=== PATIENT | female | born 1950 | race Caucasian/White ===

== ENCOUNTER 2017-11-20 12:25 | Emergency (ER) | payer MEDICARE, BC ==
[2017-11-20] MEDS ORDERED: LORazepam 0.5 MG Tab PO ONE (14:01)
[2017-11-20] MEDS ORDERED: HYDROmorphone 0.5 MG/0.5 ML Syringe IM ONE (14:02)
--- NOTE | 2017-11-20 14:03 | EDM.PDOC ---
ED HPI GENERAL MEDICAL PROBLEM - General Chief Complaint: Back Pain or Injury Stated Complaint: BACK MUSCLE SPASMS Time Seen by Provider: 11/20/17 14:03 Source of Information: Reports: Patient History Limitations: Reports: No Limitations - History of Present Illness INITIAL COMMENTS - FREE TEXT/NARRATIVE: pt arrived with acute pain in the lumbar area. She did seem quite agitated. Onset: Other (started Thursday) Duration: Day(s): Location: Reports: Back Quality: Reports: Ache, Sharp Associated Symptoms: Reports: No Other Symptoms Lower Back Pain Score (Numeric/FACES): 10 - Related Data Allergies Allergy/AdvReac Type Severity Reaction Status Date / Time cyclobenzaprine Allergy Confusion Verified 11/20/17 13:05 [From Flexeril] Home Meds: Home Meds Calcium Carbonate/Vitamin D3 [Calcium 600 + Vit D 200] 1 each PO BID 11/20/17 [ History] Celecoxib [Celecoxib] 1 tab PO BID 11/20/17 [History] Cholecalciferol (Vitamin D3) [Vitamin D] 1,000 unit PO DAILY 11/20/17 [History] Citalopram Hydrobromide [Celexa] 20 mg PO DAILY 11/20/17 [History] Gabapentin [Neurontin] 600 mg PO BID 11/20/17 [History] Glucosam/Msm/Vit C/Javier/Hrb#21 [Glucosamine-MSM Complex] 1 tab PO BID 11/20/17 [ History] Hydrocodone/Acetaminophen [[place] 10-325 Tablet] 1 tab PO Q6H PRN 11/20/17 [ History] Lisinopril/Hydrochlorothiazide [Zestoretic 10-12.5 mg Tablet] 1 tab PO DAILY [History] Morphine Sulfate [Morphine Sulfate ER] 30 mg PO Q12H 11/20/17 [History] [place]-3 Fatty Acids [Maxepa] 1,000 mg PO DAILY 11/20/17 [History] Omeprazole 20 mg PO DAILY 11/20/17 [History] Raloxifene [Evista] 60 mg PO DAILY 11/20/17 [History] buPROPion [Wellbutrin SR] 150 mg PO BID 11/20/17 [History] tiZANidine [Zanaflex] 4 mg PO TID 11/20/17 [History] Past Medical History HEENT History: Reports: Impaired Vision Cardiovascular History: Reports: Hypertension 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: Musculoskeletal History: Reports: Arthritis, Back Pain, Chronic, Osteoarthritis , Osteoporosis Psychiatric History: Reports: Depression - Infectious Disease History Infectious Disease History: Reports: Measles - Past Surgical History GI Surgical History: Reports: Colonoscopy Social & Family History - Tobacco Use Smoking Status *Q: Never Smoker Second Hand Smoke Exposure: No - Caffeine Use Caffeine Use: Reports: Coffee - Recreational Drug Use Recreational Drug Use: No ED ROS GENERAL - Review of Systems Review Of Systems: See Below Constitutional: Reports: No Symptoms HEENT: Reports: No Symptoms Respiratory: Reports: No Symptoms Cardiovascular: Reports: No Symptoms Endocrine: Reports: No Symptoms GI/Abdominal: Reports: No Symptoms : Reports: No Symptoms Musculoskeletal: Reports: Other ( Pain in lower back. ) Skin: Reports: No Symptoms ED EXAM,LOWER BACK PAIN/INJURY - Physical Exam Exam: See Below Text/Narrative:: pt arrived complaining of pain in the lower back. She did seem very tense. She evidently became confused with the use of the flexerilc Exam Limited By: No Limitations General Appearance: Alert, Anxious, Moderate Distress Ears: Normal TMs Nose: Normal Inspection Throat/Mouth: Normal Inspection Head: Atraumatic Neck: Normal Inspection Respiratory/Chest: No Respiratory Distress Cardiovascular: Regular Rate, Rhythm GI/Abdominal: Soft, Non-Tender, Other ( she does have pain coming around from the back to the abdoman. ) (Female) Exam: Deferred Rectal (Female) Exam: Deferred Back Exam: Normal Inspection Extremities: Normal Inspection Neurological: Alert Psychiatric: Anxious, Other (pt was on the agitated side. ) Course - Vital Signs Last Recorded V/S: Last Vital Signs Temp 36.4 C 11/20/17 13:03 Pulse 94 11/20/17 13:03 Resp 14 11/20/17 13:03 BP 178/97 H 11/20/17 13:03 Pulse Ox 97 11/20/17 13:03 - Orders/Labs/Meds Orders: Active Orders 24 hr Category Date Time Status Lumbar Spine Min 4V [CR] Stat Exams 11/20/17 14:00 Taken Labs: Laboratory Tests 11/20/17 11/20/17 11/20/17 Range/Units 14:00 14:00 15:10 WBC 10.5 (4.5-11.0) K/uL RBC 4.32 (3.30-5.50) M/uL Hgb 12.8 (12.0-15.0) g/dL Hct 36.7 (36.0-48.0) % MCV 85 (80-98) fL MCH 30 (27-31) pg MCHC 35 (32-36) % Plt Count 311 (150-400) K/uL Neut % (Auto) 85 H (36-66) % Lymph % (Auto) 9 L (24-44) % [place] % (Auto) 5 (2-6) % Eos % (Auto) 0 L (2-4) % Baso % (Auto) 0 (0-1) % Sodium 128 L (140-148) mmol/L Potassium 3.3 L (3.6-5.2) mmol/L Chloride 91 L (100-108) mmol/L Carbon Dioxide 28 (21-32) mmol/L Anion Gap 12.3 (5.0-14.0) mmol/L BUN 7 (7-18) mg/dL Creatinine 0.8 (0.6-1.0) mg/dL Est Cr Clr Drug Dosing 58.93 mL/min Estimated GFR (MDRD) > 60 (>60) Glucose 168 H (74-106) mg/dL Calcium 8.7 (8.5-10.1) mg/dL Total Bilirubin 0.4 (0.2-1.0) mg/dL AST 22 (15-37) U/L ALT 19 (12-78) U/L Alkaline Phosphatase 59 (46-116) U/L Total Protein 7.0 (6.4-8.2) g/dL Albumin 3.3 L (3.4-5.0) g/dL Globulin 3.7 H (2.3-3.5) g/dL Albumin/Globulin Ratio 0.9 L (1.2-2.2) Urine Color Yellow Urine Appearance Clear Urine pH 7.0 (4.5-8.0) Ur Specific [place] 1.010 (1.008-1.030) Urine Protein Negative (NEGATIVE) mg/dL Urine Glucose (UA) Normal (NEGATIVE) mg/dL Urine Ketones Negative (NEGATIVE) mg/dL Urine Occult Blood Moderate (NEGATIVE) Urine Nitrite Negative (NEGATIVE) Urine Bilirubin Negative (NEGATIVE) Urine Urobilinogen Normal (NORMAL) mg/dL Ur Leukocyte Esterase Negative (NEGATIVE) Urine RBC 0-5 (0-5) Urine WBC Not seen (0-5) Ur Epithelial Cells Rare Amorphous Sediment Not seen Urine Bacteria Rare Urine Mucus Not seen Meds: Medications Discontinued Medications Generic Name Dose Route Start Last Admin Trade Name Yoni PRN Reason Stop Dose Admin Hydromorphone HCl 0.5 mg 11/20/17 14:02 11/20/17 14:32 Dilaudid IM 11/20/17 14:03 0.5 mg ONETIME ONE Administration Lorazepam 0.5 mg 11/20/17 14:01 11/20/17 14:22 Ativan PO 11/20/17 14:02 0.5 mg ONETIME ONE Administration Potassium Chloride 20 meq 11/20/17 14:44 11/20/17 15:17 Klor-Con M20 PO 11/20/17 14:45 20 meq ONETIME ONE Administration - Re-Assessments/Exams Free Text/Narrative Re-Assessment/Exam: 11/20/17 16:16 xrays were obtained of the lumbar spine. This did not show any change in alignment. There were no definite compresion fractures. Pt was given dilaudid nd ativan and she is much more relaxed. 11/20/17 16:18 Departure - Departure Time of Disposition: 16:20 Disposition: Home, Self-Care 01 Condition: Fair Clinical Impression: Lumbar paraspinal muscle spasm - Discharge Information Referrals: Uriah Jimenez MD [Primary Care Provider] - Forms: ED Department Discharge Care Plan Goals: moist warm packs to the area multiple times per day, cont zanaflex tid to relax muscles, cont sme pain meds, torodol 10mg tid with food for the next 5 days, ativan .5 for the next 5 days for anxiety, schedule physical rherapy. high Potassium diet. - My Orders Last 24 Hours: My Active Orders 11/20/17 14:00 Lumbar Spine Min 4V [CR] Stat - Assessment/Plan Last 24 Hours: My Active Orders 11/20/17 14:00 Lumbar Spine Min 4V [CR] Stat
[2017-11-20] MEDS ORDERED: Potassium Chloride 20 MEQ Tab.ER PO ONE (14:44)
--- NOTE | 2017-11-24 09:00 | CR ---
Height loss at L5 vertebral body and interval since 12/03/2009 can indicate a compression deformity. Th is may be remote as there is no lucency. Correlate clinically. There is mild anterolisthesis L5-S1. I t appears more evident on extension. Disc height loss L4-5. Facet arthropathy L5-S1.
== END 2017-11-20 16:51 | disposition home or self-care (01) ==
LOC: JP.ED 12:25
DX: M62.830 Muscle spasm of back (principal); I10 Essential (primary) hypertension; Z79.899 Other long term (current) drug therapy; F32.9 Major depressive disorder, single episode, unspecified; Z88.8 Allergy status to other drugs, medicaments and biological substances
CPT/HCPCS: 36415; 72110; 80053; 81001; 85025; 96372; 99284; A9270; J1170; 99283

== ENCOUNTER 2018-03-07 17:12 | Emergency (ER) | payer MEDICARE, BC ==
[2018-03-07] MEDS ORDERED: Albuterol 0.083% 2.5 MG/3 ML Neb Soln NEB ONE (18:01)
--- NOTE | 2018-03-07 18:04 | EDM.PDOC ---
ED HPI GENERAL MEDICAL PROBLEM - General Chief Complaint: Respiratory Problem Stated Complaint: CHEST CONGESTION, COUGH Time Seen by Provider: 03/07/18 18:02 Source of Information: Reports: Patient, Family History Limitations: Reports: No Limitations - History of Present Illness INITIAL COMMENTS - FREE TEXT/NARRATIVE: pt has been coughing alot and she has been very wheezy. She has been coughing for about 5 days. She has not been raising sputum. She is very sweaty at this time. Onset: Gradual, Other (past 5 days. ) Duration: Day(s): Location: Reports: Chest Associated Symptoms: Reports: Cough, Fever/Chills, Shortness of Breath rib Pain Score (Numeric/FACES): 4 - Related Data Allergies Allergy/AdvReac Type Severity Reaction Status Date / Time cyclobenzaprine Allergy Confusion Verified 03/07/18 17:37 [From Flexeril] Home Meds: Home Meds Calcium Carbonate/Vitamin D3 [Calcium 600 + Vit D 200] 1 each PO BID 11/20/17 [ History] Celecoxib 1 tab PO BID 11/20/17 [History] Cholecalciferol (Vitamin D3) [Vitamin D] 1,000 unit PO DAILY 11/20/17 [History] Citalopram Hydrobromide [Celexa] 20 mg PO DAILY 11/20/17 [History] Gabapentin [Neurontin] 600 mg PO BID 11/20/17 [History] Glucosam/Msm/Vit C/Javier/Hrb#21 [Glucosamine-MSM Complex] 1 tab PO BID 11/20/17 [ History] Hydrocodone/Acetaminophen [[place] 10-325 Tablet] 1 tab PO Q6H PRN 11/20/17 [ History] Lisinopril/Hydrochlorothiazide [Zestoretic 10-12.5 mg Tablet] 1 tab PO DAILY [History] Morphine Sulfate [Morphine Sulfate ER] 30 mg PO Q12H 11/20/17 [History] [place]-3 Fatty Acids [Maxepa] 1,000 mg PO DAILY 11/20/17 [History] Omeprazole 20 mg PO DAILY 11/20/17 [History] Raloxifene [Evista] 60 mg PO DAILY 11/20/17 [History] buPROPion [Wellbutrin SR] 150 mg PO BID 11/20/17 [History] Past Medical History HEENT History: Reports: Impaired Vision Cardiovascular History: Reports: Hypertension 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: Musculoskeletal History: Reports: Arthritis, Back Pain, Chronic, Osteoarthritis , Osteoporosis Psychiatric History: Reports: Depression - Infectious Disease History Infectious Disease History: Reports: Measles - Past Surgical History GI Surgical History: Reports: Colonoscopy Social & Family History - Tobacco Use Smoking Status *Q: Never Smoker Second Hand Smoke Exposure: No - Caffeine Use Caffeine Use: Reports: Coffee - Recreational Drug Use Recreational Drug Use: No ED ROS GENERAL - Review of Systems Review Of Systems: See Below Constitutional: Reports: Chills, Malaise, Diaphoresis HEENT: Reports: No Symptoms Respiratory: Reports: Shortness of Breath, Wheezing, Cough Cardiovascular: Reports: No Symptoms Endocrine: Reports: No Symptoms GI/Abdominal: Reports: No Symptoms : Reports: No Symptoms Musculoskeletal: Reports: No Symptoms Skin: Reports: No Symptoms Neurological: Reports: No Symptoms Psychiatric: Reports: No Symptoms ED EXAM, GENERAL - Physical Exam Exam: See Below Free Text/Narrative:: pt arrived sob and feeling very wheezy. She has been coughing for the past 5 days. She is not raising any sputum. Exam Limited By: No Limitations General Appearance: Alert, Anxious, Moderate Distress Ears: Normal TMs Nose: Normal Inspection Throat/Mouth: Normal Inspection Head: Atraumatic Neck: Normal Inspection Respiratory/Chest: Decreased Breath Sounds, Crackles, Wheezing Cardiovascular: Regular Rate, Rhythm GI/Abdominal: Soft, Non-Tender (Female) Exam: Deferred Rectal (Female) Exam: Deferred Back Exam: Normal Inspection Extremities: Normal Inspection Neurological: Alert, Oriented, Normal Cognition Psychiatric: Anxious Course - Vital Signs Last Recorded V/S: Last Vital Signs Temp 35.9 C 03/07/18 17:35 Pulse 90 03/07/18 18:32 Resp 16 03/07/18 18:32 BP 158/92 H 03/07/18 18:32 Pulse Ox 92 L 03/07/18 18:32 - Orders/Labs/Meds Labs: Laboratory Tests 03/07/18 03/07/18 Range/Units 18:21 18:21 WBC 8.7 (4.5-11.0) K/uL RBC 4.53 (3.30-5.50) M/uL Hgb 13.5 (12.0-15.0) g/dL Hct 38.7 (36.0-48.0) % MCV 85 (80-98) fL MCH 30 (27-31) pg MCHC 35 (32-36) % Plt Count 287 (150-400) K/uL Neut % (Auto) 72 H (36-66) % Lymph % (Auto) 16 L (24-44) % [place] % (Auto) 9 H (2-6) % Eos % (Auto) 3 (2-4) % Baso % (Auto) 1 (0-1) % Sodium 130 L (140-148) mmol/L Potassium 3.3 L (3.6-5.2) mmol/L Chloride 90 L (100-108) mmol/L Carbon Dioxide 29 (21-32) mmol/L Anion Gap 14.3 H (5.0-14.0) mmol/L BUN 5 L (7-18) mg/dL Creatinine 1.0 (0.6-1.0) mg/dL Est Cr Clr Drug Dosing 47.14 mL/min Estimated GFR (MDRD) 55 L (>60) Glucose 110 H (74-106) mg/dL Calcium 8.6 (8.5-10.1) mg/dL Total Bilirubin 0.3 (0.2-1.0) mg/dL AST 21 (15-37) U/L ALT 18 (12-78) U/L Alkaline Phosphatase 60 (46-116) U/L Total Protein 7.2 (6.4-8.2) g/dL Albumin 3.4 (3.4-5.0) g/dL Globulin 3.8 H (2.3-3.5) g/dL Albumin/Globulin Ratio 0.9 L (1.2-2.2) Meds: Medications Discontinued Medications Generic Name Dose Route Start Last Admin Trade Name Freq PRN Reason Stop Dose Admin Albuterol 2.5 mg 03/07/18 18:01 03/07/18 18:04 Proventil Neb Soln NEB 03/07/18 18:02 2.5 mg ONETIME ONE Administration Triamcinolone Acetonide 60 mg 03/07/18 18:39 Kenalog-40 INJECT 03/07/18 18:40 ASDIRECTED ONE - Re-Assessments/Exams Free Text/Narrative Re-Assessment/Exam: 03/07/18 18:37 chest xray does not reveal any infiltrates, Her wbc is not elevated. 03/07/18 18:38 k is borderline. She had a albuterol neb and that was helpful. Departure - Departure Time of Disposition: 18:40 Disposition: Home, Self-Care 01 Condition: Fair Clinical Impression: Bronchitis, Bronchospasm - Discharge Information Instructions: Acute Bronchitis, Adult, [id number] Referrals: Uriah Jimenez MD [Primary Care Provider] - Forms: ED Department Discharge Care Plan Goals: push fluids, high k diet. alputerol inhaler with a small dictaphone technician, zpack, cool mist humidifier. i
[2018-03-07] MEDS ORDERED: Triamcinolone Acetonide 40 MG/ML 1 ML MDV INJECT ONE (18:39)
--- NOTE | 2018-03-08 09:14 | CR ---
Chest 2V INDICATION: sob and wheezy. FINDINGS: Comparison 08/10/2017. Heart size within normal limits. Mild hyperinflation. Interval compre ssion of lower thoracic vertebral body since prior x-ray. Exam otherwise unremarkable.
== END 2018-03-07 18:57 | disposition home or self-care (01) ==
LOC: JP.ED 17:12
DX: J20.9 Acute bronchitis, unspecified (principal); I10 Essential (primary) hypertension; F32.9 Major depressive disorder, single episode, unspecified; Z79.899 Other long term (current) drug therapy; Z88.8 Allergy status to other drugs, medicaments and biological substances
CPT/HCPCS: 36415; 71046; 71046-26; 80053; 85025; 94640; 96372; 99283; 99285-25

== ENCOUNTER 2020-05-03 05:26 | Day surgery (SDC) | payer MEDICARE ==
[2020-05-03] MEDS ORDERED: Dextrose 5%-Lactated Ringers 1,000 ML IV SCH (06:20)
[2020-05-03] MEDS ORDERED: Midazolam 1 MG/ML 2 ML SDV ONE (07:06)
[2020-05-03] MEDS ORDERED: fentaNYL 100 MCG/2 ML SDV ONE (07:06)
[2020-05-03] MEDS ORDERED: Propofol 200 MG/20 ML SDV ONE (07:06)
--- NOTE | 2020-05-13 12:24 | OR ---
DATE OF PROCEDURE: 05/03/2020 SURGEON: Fareed Leos MD PREOPERATIVE DIAGNOSIS: Chronic diarrhea/loose bowel movements. POSTOPERATIVE DIAGNOSIS: Chronic diarrhea/loose bowel movements with otherwise normal colonoscopic examination. OPERATIVE PROCEDURE: Flexible colonoscopy with: 1. Collection of stool for microbiologic workup ([id number]). 2. Random colorectal biopsies to rule out microscopic colitis ([id number]). ANESTHESIA: IV sedation. INDICATION FOR PROCEDURE: A 70-year-old presenting with ongoing problems of chronic diarrhea along with frequent loose bowel movements. The plan is to proceed with flexible colonoscopy with biopsies as indicated and minimum collect some stool for microbiologic workup, and if there is not any focal pathology to explain the patient's symptoms, we would obtain random colorectal biopsies to rule out microscopic colitis, potential risks of the procedure including bleeding and perforation were discussed and the patient wishes to proceed. DETAILS OF PROCEDURE: The patient was taken to the operating room, placed in a left lateral decubitus position. IV sedation was administered, after which the initial digital rectal exam was performed that was unremarkable. Colonoscope was then passed to the level of the rectum with retroflexion view revealing uncomplicated hemorrhoidal columns. The scope was then eventually passed to cecum. The prep was quite good. Small amount of stool was evacuated and sent for microbiologic workup. Otherwise, the patient had no areas of colitis or evidence of neoplasia and no areas of diverticulosis. After when we reached the cecum, the scope was gradually withdrawn. The above findings reconfirmed, and as when passed out, multiple biopsies were taken from the colorectal mucosa to rule out microscopic colitis. Minimal bleeding from biopsy sites was seen. The procedure then concluded. The patient was taken to the recovery room in satisfactory condition. The patient will be sent for followup with Dr. Jimenez in 7 to 10 days. Fareed Leos MD /[id number]
== END 2020-05-03 10:05 | disposition home or self-care (01) ==
LOC: JP.SDS 05:26
PROVIDERS: ATTEND Surgery
DX: K52.9 Noninfective gastroenteritis and colitis, unspecified (principal); K62.89 Other specified diseases of anus and rectum; R19.4 Change in bowel habit; K21.9 Gastro-esophageal reflux disease without esophagitis; I10 Essential (primary) hypertension; Z87.891 Personal history of nicotine dependence; Z88.8 Allergy status to other drugs, medicaments and biological substances
CPT/HCPCS: 45380; 87046; 87177; 87209; 87493; 87899; 88305; J2250; J2704; J3010; J7121

== ENCOUNTER 2022-10-15 09:13 | Emergency (ER) | payer MEDICARE ==
[2022-10-15] MEDS ORDERED: Ketorolac 30 MG/ML SDV IM ONE (10:03)
== END 2022-10-15 11:32 | disposition home or self-care (01) ==
LOC: JP.ED 09:13
DX: M48.56XA Collapsed vertebra, not elsewhere classified, lumbar region, initial encounter for fracture (principal); M81.0 Age-related osteoporosis without current pathological fracture; T40.2X5A Adverse effect of other opioids, initial encounter; I10 Essential (primary) hypertension; M19.90 Unspecified osteoarthritis, unspecified site; Z87.891 Personal history of nicotine dependence; Z88.8 Allergy status to other drugs, medicaments and biological substances; Z79.899 Other long term (current) drug therapy
CPT/HCPCS: 72100; 96372; 99283; J1885

== ENCOUNTER 2024-12-21 15:46 | Emergency (ER) | payer MEDICARE, BC ==
[2024-12-21] MEDS: Lidocaine 1% with EPINEPHrine 1:100,000 20 ML MDV INJECT ONE (16:28)
== END 2024-12-21 17:32 | disposition home or self-care (01) ==
LOC: JP.ED 15:46
DX: S01.81XA Laceration without foreign body of other part of head, initial encounter (principal); I10 Essential (primary) hypertension; Z88.8 Allergy status to other drugs, medicaments and biological substances; Z79.899 Other long term (current) drug therapy; W01.198A Fall on same level from slipping, tripping and stumbling with subsequent striking against other object, initial encounter
CPT/HCPCS: 12011; 70450; 70450-26; 72125; 72125-26; 76377; 76377-26; 99283